=== PATIENT | male | born 1975 | race Caucasian/White ===

== ENCOUNTER 2024-04-08 13:10 | Emergency (ER) | payer BC ==
[~2024-04-08] VITALS: Ht 190.5 cm; Wt 85.7 kg
[2024-04-08 14:12] VITALS: BP 170/111; PULSE 110; RESP 18; O2SAT 100
[2024-04-08] MEDS ORDERED: GABA300C PO (16:04)
[2024-04-08] MEDS ORDERED: PRED20TA PO (16:04)
[2024-04-08] MEDS ORDERED: METH-798 PO (16:04)
[2024-04-08 16:18] VITALS: TEMP 97.7
== END 2024-04-08 16:21 | disposition home or self-care (01) ==
LOC: ER 13:11
DX: M54.17 Radiculopathy, lumbosacral region (principal)
CPT/HCPCS: 99283